=== PATIENT | female | born 1980 | race Caucasian/White ===

== ENCOUNTER 2017-02-14 10:34 | Emergency (ER) | payer OTHER ==
[~2017-02-14] VITALS: Ht 170.2 cm; Wt 74.5 kg
[2017-02-14] MEDS ORDERED: WELLTAB40 PO (10:46)
[2017-02-14] MEDS ORDERED: TRAZ-136 PO (10:46)
[2017-02-14] MEDS ORDERED: REST15CA PO (10:46)
[2017-02-14] MEDS ORDERED: NAPROXEN 250 MG TAB PO ONE (11:45)
[2017-02-14] MEDS ORDERED: PERCOCET 5MG/325MG TAB PO ONE (11:45)
--- NOTE | 2017-02-14 12:16 | REP ---
CT cervical spine without contrast HISTORY: Trauma COMPARISON: None There is no acute fracture or subluxation. There is no disc bulge or herniation. The spinal canal and neural foramina are patent. The intervertebral discs and vertebral bodies are normal in height. IMPRESSION: There is no acute fracture or subluxation. Signed by Juwan Franklin MD 02/14/2017 12:07 P
--- NOTE | 2017-02-14 12:58 | REP ---
The thoracic spine three views: Vertebral body heights, interspacing alignment are normal. Mineralization is normal. The pedicles are unremarkable. Impression: Essentially negative thoracic spine. Signed by Alvin Tracey MD 02/14/2017 12:50 P
--- NOTE | 2017-02-14 13:01 | REP ---
Lumbar spine six views: There are no comparisons. Vertebral body heights, interspacing alignment are normal. The pedicles, facets and sacroiliac articulations are unremarkable. Bilateral fallopian tube coils are incidentally noted in the pelvis. Impression: Negative lumbar spine. Signed by Alvin Tracey MD 02/14/2017 12:51 P
[2017-02-14] MEDS ORDERED: MOBI4TAB PO (13:05)
[2017-02-14] MEDS ORDERED: ZANA4TAB PO (13:05)
[2017-02-14 13:12] VITALS: BP 139/87
== END 2017-02-14 13:24 | disposition home or self-care (01) ==
LOC: M ED 11:30
DX: M54.2 Cervicalgia (principal); V43.02XA Car driver injured in collision with other type car in nontraffic accident, initial encounter; Y92.89 Other specified places as the place of occurrence of the external cause; Y93.9 Activity, unspecified; Y99.9 Unspecified external cause status; F41.9 Anxiety disorder, unspecified; F32.9 Major depressive disorder, single episode, unspecified; D68.2 Hereditary deficiency of other clotting factors; Z79.899 Other long term (current) drug therapy; Z88.8 Allergy status to other drugs, medicaments and biological substances

== ENCOUNTER 2017-12-25 09:35 | Emergency (ER) | payer OTHER ==
[2017-12-25] MEDS: NS 500 ML IV (09:30)
[2017-12-25 09:37] LABS: BASO % 0.7 % (0.0-1.0); EOS # 0.1 10^3/uL (0.0-0.50); EOS % 2.2 % (0.0-3.0); HEMATOCRIT 37.8 % (36.0-47.0); HEMOGLOBIN 12.7 g/dl (12.0-15.5); IMMATURE GRANULOCYTE % 0.2 % (0-3.0); LYMPH # 1.5 10^3/uL (1.5-4.5); LYMPH % 26.7 % (24.0-44.0); MEAN CORPUSCULAR HGB CONC 33.6 g/dl (32.0-36.5); MEAN CORPUSCULAR VOLUME 86.3 fl (80.0-96.0); MONO # 0.4 10^3/uL (0.0-0.8); MONO % 7.8 % (0.0-5.0); NEUTROPHILS # 3.4 10^3/uL (1.8-7.7); NEUTROPHILS % 62.4 % (36.0-66.0); PLATELET COUNT, AUTOMATED 239 10^3/uL (150-450); RED BLOOD COUNT 4.38 10^6/uL (4.00-5.40); RED CELL DISTRIBUTION WIDTH 12.5 % (11.5-14.5); WHITE BLOOD COUNT 5.5 10^3/uL (4.0-10.0)
[2017-12-25 09:41] LABS: INR 0.93; PROTHROMBIN TIME 12.6 SECONDS (12.4-14.5)
[2017-12-25 09:42] LABS: PARTIAL THROMBOPLASTIN TIME 30.6 SECONDS (26.8-37.9)
[2017-12-25 09:46] LABS: D-DIMER QUANT 576.4 ng/ml (<500)
[2017-12-25 09:58] LABS: ALBUMIN 3.5 GM/DL (3.2-5.2); ALBUMIN/GLOBULIN RATIO 1.06 (1.00-1.93); ALKALINE PHOSPHATASE 64 U/L (45-117); ALT/SGPT 16 U/L (12-78); ANION GAP 7 MEQ/L (8-16); AST/SGOT 12 U/L (7-37); BILIRUBIN,DIRECT 0.2 MG/DL (0.0-0.2); BILIRUBIN,TOTAL 0.8 MG/DL (0.2-1.0); BLOOD UREA NITROGEN 9 MG/DL (7-18); CALCIUM LEVEL 8.5 MG/DL (8.5-10.1); CARBON DIOXIDE LEVEL 26 MEQ/L (21-32); CHLORIDE LEVEL 107 MEQ/L (98-107); CPK CREATINE PHOSPHOKINASE 70 U/L (26-192); CREATININE FOR GFR 0.85 MG/DL (0.55-1.30); FREE T4 0.97 NG/DL (0.76-1.46); GLOMERULAR FILTRATION RATE > 60.0 (>60); GLUCOSE, FASTING 82 MG/DL (70-100); LIPASE 156 U/L (73-393); POTASSIUM SERUM 3.8 MEQ/L (3.5-5.1); SODIUM LEVEL 140 MEQ/L (136-145); TOTAL PROTEIN 6.8 GM/DL (6.4-8.2); TROPONIN I < 0.02 NG/ML (< 0.10)
[2017-12-25 10:03] LABS: CK-MB VALUE MASS < 1.0 NG/ML (<3.6); MB/CK RELATIVE INDEX 1.42 (< OR =4)
[2017-12-25] MEDS ORDERED: ISOVUE-370 76% 100ML VIAL (Q9967) As Ordered (10:07)
== END 2017-12-25 11:20 | disposition home or self-care (01) ==
LOC: M ED 09:35
DX: R00.2 Palpitations (principal); R07.9 Chest pain, unspecified; D68.59 Other primary thrombophilia; Z86.718 Personal history of other venous thrombosis and embolism; Z79.899 Other long term (current) drug therapy; Z88.8 Allergy status to other drugs, medicaments and biological substances
CPT/HCPCS: Q9967

== ENCOUNTER 2020-06-10 07:30 | Emergency (ER) | payer OTHER ==
[~2020-06-10] VITALS: Ht 167.6 cm; Wt 85.2 kg
[~2020-06-10 07:30] MED LIST: MOBI4TAB PO; REST15CA PO; TRAZ-257 PO; WELLTAB40 PO; ZANA4TAB PO
[2020-06-10] MEDS ORDERED: CYCLOBENZAPRINE 10MG TABLET PO ONE (08:00)
[2020-06-10] MEDS ORDERED: methylPREDNISolone 125MG 2ML VIAL IV ONE (08:00)
[2020-06-10] MEDS ORDERED: KETOROLAC 30 MG/ML 1ML VIAL IV ONE (08:00)
[2020-06-10 08:18] LABS: BASO # 0.1 10^3/uL (0.0-0.2); BASO % 0.6 % (0.0-1.0); EOS # 0.2 10^3/uL (0.0-0.5); EOS % 1.6 % (0.0-3.0); HEMOGLOBIN 13.3 g/dl (12.0-15.5); LYMPH # 2.6 10^3/uL (1.5-5.0); LYMPH % 28.2 % (24.0-44.0); MEAN CORPUSCULAR HEMOGLOBIN 28.1 pg (27.0-33.0); MEAN CORPUSCULAR HGB CONC 32.4 g/dl (32.0-36.5); MEAN CORPUSCULAR VOLUME 86.7 fl (80.0-96.0); MONO # 0.6 10^3/uL (0.0-0.8); MONO % 6.4 % (0.0-5.0); NEUTROPHILS # 5.9 10^3/uL (1.5-8.5); NEUTROPHILS % 62.5 % (36.0-66.0); PLATELET COUNT, AUTOMATED 297 10^3/uL (150-450); RED BLOOD COUNT 4.73 10^6/uL (4.00-5.40); WHITE BLOOD COUNT 9.4 10^3/uL (4.0-10.0)
[2020-06-10 08:25] LABS: APPEARANCE, URINE CLEAR (CLEAR); BACTERIA, URINE AUTO 1+ (NEGATIVE); BILIRUBIN, URINE AUTO NEGATIVE (NEGATIVE); BLOOD, URINE BLOOD NEGATIVE (NEGATIVE); COLOR, URINE STRAW (YELLOW); GLUCOSE, URINE (UA) AUTO NEGATIVE (NEGATIVE); KETONE, URINE AUTO NEGATIVE (NEGATIVE); LEUKOCYTE ESTERASE, URINE AUTO 1+ (NEGATIVE); NITRITE, URINE AUTO NEGATIVE (NEGATIVE); PROTEIN, URINE AUTO NEGATIVE (NEGATIVE); RBC, URINE AUTO 2 /HPF (0-3); SPECIFIC GRAVITY URINE AUTO 1.009 (1.002-1.035); SQUAMOUS EPITHELIAL CELL UR AU 0 /HPF (0-6); UROBILINOGEN, URINE AUTO 0.2 mg/dL (0.0-2.0); WBC, URINE AUTO 1 /HPF (0-3)
--- NOTE | 2020-06-10 08:48 | REPVR ---
PROCEDURE INFORMATION: Exam: CT Lumbar Spine Without Contrast Exam date and time: 06/10/2020 7:52 AM Age: 39 years old Clinical indication: Low back pain TECHNIQUE: Imaging protocol: Computed tomography images of the lumbar spine without contrast. Radiation optimization: All CT scans at this facility use at least one of these dose optimization techniques: automated exposure control; mA and/or kV adjustment per patient size (includes targeted exams where dose is matched to clinical indication); or iterative reconstruction. COMPARISON: [facility] Spine. Lumbosacral, complete 02/14/2017 12:14 PM FINDINGS: Vertebrae: No acute fracture. Normal alignment. Discs/Spinal canal/Neural foramina: At L4/5, there is shallow disc bulging. There is mild facet hypertrophy. There is mild canal stenosis, with a residual canal diameter of 10 mm. At L5/S1, there is disc bulging with a superimposed shallow right paracentral/subarticular protrusion. This indents the thecal sac and narrows the right lateral recess, with disc material in close contact with the right S1 nerve root. Soft tissues: Unremarkable. IMPRESSION: Degenerative disc disease at L4/5 and L5/S1 as above. At L5/S1, disc bulge with right paracentral/subarticular protrusion comes into close contact with the right S1 nerve root. This would be better assessed with MRI as indicated clinically. Electronically signed by: Xenia Han On 06/10/2020 08:47:46 AM
[2020-06-10 09:34] VITALS: BP 133/81
[2020-06-10] MEDS ORDERED: LIDO5DIS41 TOP (09:56)
[2020-06-10] MEDS ORDERED: KETO10TAB PO (09:56)
[2020-06-10] MEDS ORDERED: TIZA2CAP PO (09:57)
[2020-06-10] MEDS ORDERED: POTASSIUM CHLORIDE 10 MEQ SR TABLET PO ONE (10:00)
== END 2020-06-10 10:11 | disposition home or self-care (01) ==
LOC: M ED 07:30
DX: E87.6 Hypokalemia (principal); M51.36 Other intervertebral disc degeneration, lumbar region; M51.37 Other intervertebral disc degeneration, lumbosacral region; M51.27 Other intervertebral disc displacement, lumbosacral region; M54.17 Radiculopathy, lumbosacral region; D68.51 Activated protein C resistance; F33.9 Major depressive disorder, recurrent, unspecified; F41.9 Anxiety disorder, unspecified; Z79.899 Other long term (current) drug therapy; Z88.8 Allergy status to other drugs, medicaments and biological substances
CPT/HCPCS: 72131; 80047; 81001; 84702; 85025; 87086; 96374; 96375; 99284; J1885; J2930